=== PATIENT | female | born 1980 | race Caucasian/White ===

== ENCOUNTER 2018-09-19 03:05 | Emergency (ER) | payer MEDICAID ==
[~2018-09-19] VITALS: Ht 175.3 cm; Wt 111.0 kg
[~2018-09-19 03:05] MED LIST: ALPR-624 PO; CYCL-1 PO; ORPH100T2 PO
[2018-09-19 03:08] VITALS: BP 154/95
[2018-09-19] MEDS ORDERED: HYDROcodone/acetaminophen 10/325mg tab PO ONE (03:50)
[2018-09-19] MEDS ORDERED: acetaminophen 325mg tablet PO ONE (03:50)
[2018-09-19] MEDS ORDERED: ondansetron 4mg rapidly disintigrating tab PO ONE (03:50)
[2018-09-19] MEDS ORDERED: amoxicillin 250mg capsule PO ONE (03:50)
== END 2018-09-19 04:15 | disposition home or self-care (01) ==
LOC: ER 03:05
DX: K08.89 Other specified disorders of teeth and supporting structures (principal); Z98.890 Other specified postprocedural states
CPT/HCPCS: 99284

== ENCOUNTER 2019-08-05 11:15 | Emergency (ER) | payer MEDICAID ==
[~2019-08-05] VITALS: Ht 175.3 cm; Wt 96.5 kg
[2019-08-05 11:52] VITALS: BP 154/86
[2019-08-05] MEDS ORDERED: HYDR-3965 PO (13:04)
[2019-08-05] MEDS ORDERED: HYDROcodone/acetaminophen 10/325mg tab PO ONE (13:05)
== END 2019-08-05 13:18 | disposition home or self-care (01) ==
LOC: ER 11:15
DX: M79.645 Pain in left finger(s) (principal); R20.0 Anesthesia of skin; F41.9 Anxiety disorder, unspecified; F32.9 Major depressive disorder, single episode, unspecified; Z98.890 Other specified postprocedural states; Z79.899 Other long term (current) drug therapy
CPT/HCPCS: 29130; 73140; 99283

== ENCOUNTER 2020-08-05 13:58 | Emergency (ER) | payer MEDICAID ==
[~2020-08-05] VITALS: Ht 175.3 cm; Wt 90.9 kg
[2020-08-05 14:04] VITALS: BP 122/84
--- NOTE | 2020-08-05 15:13 | NUR ---
PT LEFT FAST TRACK PRIOR TO PROVIDER SEEING HER.
== END 2020-08-05 15:25 | disposition left against medical advice (07) ==
LOC: ER 13:58
DX: M54.5 Low back pain (principal); Z53.21 Procedure and treatment not carried out due to patient leaving prior to being seen by health care provider

== ENCOUNTER 2023-04-06 14:35 | Emergency (ER) | payer MEDICAID ==
[~2023-04-06] VITALS: Ht 175.3 cm; Wt 81.0 kg
[~2023-04-06 14:35] MED LIST changes: -ORPH100T2 PO; +ORPH100T4 PO
[2023-04-06 14:40] VITALS: BP 142/85
--- NOTE | 2023-04-07 11:34 | NUR ---
PRESCRIPTION CALLED IN TO [facility] ON [address] FOR AMOXICILLIN 500 MG PO Q 8 HOURS X 7 DAYS AND TYLENOL #3 -ONE TAB EVERY HOURS FOR PAIN (6 TABS). PATIENT IS AWARE OF RX AND WILL PICK MED UP TODAY.
== END 2023-04-06 15:31 | disposition home or self-care (01) ==
LOC: ER 14:35
DX: K08.89 Other specified disorders of teeth and supporting structures (principal); F41.9 Anxiety disorder, unspecified; F32.9 Major depressive disorder, single episode, unspecified; Z98.890 Other specified postprocedural states; Z79.899 Other long term (current) drug therapy
CPT/HCPCS: 99281